=== PATIENT | male | born 1985 | race Caucasian/White ===

== ENCOUNTER 2016-06-03 13:56 | Emergency (ER) | payer BC ==
[~2016-06-03] VITALS: Ht 175.3 cm; Wt 81.9 kg
[~2016-06-03 13:56] MED LIST: AZIT250T6 PO; CETI10CA19 PO; NICO1PAT49 TOP
[2016-06-03 13:58] VITALS: Ht 175.3 cm; Wt 81.9 kg
--- OUTSIDE RECORDS SUMMARY | 2016-06-03 14:00 | XMS REPORT | Continuity of Care Document ---
Author Author [facility] Organization [facility] Address Unknown Phone Unavailable Allergies Active Description Code Type Severity Reaction Onset Reported/Identified Relationship to Patient Clinical Status Yes No Known Medication Allergies NKMA N/A N/A 12/31/2014 Medications Problems Date Dx Coded Attending Type Code Diagnosis Diagnosed By 01/10/2015 Carlos Manuel Beebe Final M25.511 Pain in right shoulder 01/10/2015 Carlos Manuel Beebe Reason R51 Headache 01/10/2015 Carlos Manuel Beebe Final S06.0X9A Concussion with loss of consciousness of unspecified duration, initial enco 01/10/2015 Carlos Manuel Beebe Final W17.89XA Other fall from one level to another, initial encounter Procedures Results Encounters ACCT No. Visit Date/Time Discharge Status Pt. Type Provider Facility Loc./Unit Complaint [id number] 12/31/2014 15:32:00 2014 18:59:00 DIS Emergency Carlos Manuel Beebe [facility] ED LEFT EYE VISION PROBLEMS
--- OUTSIDE RECORDS SUMMARY | 2016-06-03 14:00 | XMS REPORT | Continuity of Care Document ---
Author Author [facility] Organization [facility] Address Unknown Phone Unavailable Care Team Providers Care Layout Operator Name Role Phone ANAM BAEZA MD Primary Care Physician [phone] Insurance Providers Guarantor Americo Velazquez Address [address] [place] [address] Email DENIED/NO PORTAL Payer [facility] Policy Number [id number] Subscriber's Name Americo Velazquez Relationship 18 Self Group Number [id number] Chief Complaint and Reason for Visit Chief Complaint Cough,Fever,Flu,URI Reason for Visit Upper respiratory infection Problems Active Problems Medical Problem Onset Date Status Concussion Unknown Acute Injury resulting from fall from height Unknown Acute Low back pain Unknown Acute Past Problems Medical Problem Onset Date Upper respiratory infection Unknown Medications Current Home Medications Medication Dose Units Route Directions Days Qty Instructions Start Date Azithromycin 250 Mg Tablet 250 Mg Oral Daily 5 Days [address] Anatoly Jacques Implementation Coordinator [facility] [address] [phone] 03/02/16 Cetirizine Hcl (Zyrtec) 10 Mg Capsule 1 Cap Oral Daily 12/31/14 Nicotine (Nicoderm Cq) 1 Each Patch.td24 1 Patch Topically Daily 14 Patch 03/02/16 Social History Social History Problem Response Recorded Date/Time Onset Date Status Hx Substance Use No 12/30/2014 11:49pm Not Applicable Not Applicable Hx Alcohol Use No 12/30/2014 11:49pm Not Applicable Not Applicable Tobacco Usage smoke 12/31/2014 12:05am Not Applicable Not Applicable Hospital Discharge Instructions No hospital discharge instructions. Plan of Care Discharge Date 03/02/16 11:58am Disposition 01 DISCHARGED HOME, SELF-CARE Condition at Discharge Stable Instructions/Education Provided DI for Viral Upper Respiratory Infection -- Adult Prescriptions See Medication Section Referrals ANAM BAEZA MD Address: [address] [place] [address] [address] ROSE [place] [id number] Functional Status No functional status results. Allergies, Adverse Reactions, Alerts Allergen Type Severity Reaction Status Last Updated STEROID Allergy Unknown Active 12/31/14 Immunizations Query Response on File Recorded Date/Time DTaP Vaccine History YES 03/02/16 11:38am Influenza Vaccine Hx NO 03/02/16 11:38am Tetanus Diptheria Vaccine History YES 03/02/16 11:38am Tdap Vaccine Hx UNKNOWN DATE, I'VE HAD A LOT OF THOSE" 12/31/14 12:27am Vital Signs Acute Vital Signs Vital Response Date/Time Temperature (Fahrenheit) 98.4 deg F (96.8 - 99.1) 03/02/2016 11:29am Temperature (Calculated Celsius) 36.57002 degrees C (36.0 - 37.3) 03/02/2016 11:29am Pulse Rate (adult) 105 bpm (60 - 100) 03/02/2016 11:29am Respiratory Rate 20 breaths/min (10 - 20) 03/02/2016 11:29am O2 Sat by Pulse Oximetry 96 % (90 - 100) 03/02/2016 11:29am Blood Pressure 139/91 mm Hg 03/02/2016 11:29am Height (Inches) 70.80 inches 03/02/2016 11:29am Weight (Kilograms) 85.100 kg 03/02/2016 11:29am Body Mass Index (BMI) 26.0 03/02/2016 11:29am Results No known relevant diagnostic tests, laboratory data and/or discharge summary. Procedures No known history of procedures. Encounters Encounter Location Arrival/Admit Date Discharge/Depart Date Attending Provider Departed Emergency Room [facility] 03/02/16 11:15am 03/02/16 11: 58am TORIE PRITCHARD APRN Recent Diagnosis
[2016-06-03] MEDS ORDERED: NO ROUTINE MEDS (14:08)
--- NOTE | 2016-06-03 14:32 | NUR ---
REPORT RECEIVED FROM NAGA RILEY. CARE ASSUMED.
--- OUTSIDE RECORDS SUMMARY | 2016-06-03 14:41 | XMS REPORT | Continuity of Care Document ---
Author Author [facility] Organization [facility] Address Unknown Phone Unavailable Allergies Active Description [...] Status Pt. Type Provider Facility Loc./Unit Complaint [id number] 12/31/2014 15:32:00 2014 18:59:00 DIS Emergency Carlos Manuel Beebe [facility] ED LEFT EYE VISION PROBLEMS
--- NOTE | 2016-06-03 14:59 | NUR ---
STATUS PT STATES "I FEEL WAY BETTER, I THINK IT CAME OUT OF MY EYE." PT STATES HE "RUBBED IT" ON HIS T-SHIRT, AND NOW HE OR IS ARE UNABLE TO SEE SPECK.
--- NOTE | 2016-06-03 15:05 | NUR ---
DR DR KIM AT BEDSIDE.
[2016-06-03] MEDS ORDERED: FLUORESCEIN SODIUM 1 MG/STRIP LEFT EYE ONE (15:15)
[2016-06-03] MEDS ORDERED: ERYTHROMYCIN 0.5% EYE OINT 3.5gm LEFT EYE ONE (15:15)
--- NOTE | 2016-06-03 15:18 | ERPDOC ---
Departure Disposition Decision Date: Jun 03, 2016 Disposition Decision Time: 15:15 Disposition: 01 DISCHARGED HOME, SELF-CARE Impression Impression Impression: Primary Impression: Corneal abrasion Qualified Codes: S05.02XA - Injury of conjunctiva and corneal abrasion without foreign body, left eye, initial encounter Severity: Mild Condition: Improved Seen By: Physician only Referrals: JESS CHAMBERS MD 1 Day ANAM BAEZA MD (PCP/Family) 2 Days Patient Instructions: Corneal Abrasion (ED) Problems/Meds/Labs Reviewed?: Yes Medications reviewed and manag: Yes Follow up care ordered?: Yes Mental Status: Alert, Oriented Scripts Erythromycin Base (Erythromycin) 1 Gm Oint...g. 1 APPLIC OP QID for 10 Days, #1 TUBE 0 Refills Prov: AMERICO KIM DO 06/03/16 HPI - EENT General General Chief Complaint: Eye Problems Stated Complaint: FB L EYE Time Seen by Provider: 14:34 Source: patient Exam Limitations: no limitations HPI - EENT General Initial Comments 30-year-old male presents to emergency department with a chief complaint of a potential metal foreign body in his left eye. 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 Patient states that he felt like there was a small foreign body in his eye. Noted onset of symptoms one day ago. Symptoms have been persistent in nature since onset. Patient denies any other complaints or associated symptoms. Patient denies any true pain or discomfort. Patient notes a mild irritated foreign body sensation in the left eye. No radiation. He does not note anything that makes his symptoms any better or any worse. he does not wear contacts. He is unsure of the date of his last tetanus vaccine. Occurred At: home Onset/Timing: Gradual Allergies: Coded Allergies: No Known Allergies (Unverified , 06/03/16) Past History Past Medical History Pt denies signifigant PMH Surgical History Denies Surgeries Family History Family PMH: FOUND: alcohol abuse, asthma, cancer, depression, diabetes, drug abuse Social History Smoking Status: Never smoker Second Hand Exposure: No Substance Use Type: does not use Alcohol Intake: none Review of Systems Constitutional Constitutional: DENIES: chills, fever Eyes General: foreign body sensation, DENIES: erythema, exudate Lids/Accessories: DENIES: erythema, swelling Vision: DENIES: acuity, blurring ENMT Ears: DENIES: drainage, erythema Hearing: DENIES: hearing loss Balance: DENIES: ataxia, falling to one side Sinuses: DENIES: congestion, pain Nose: DENIES: nosebleeds, pain Mouth/Throat: DENIES: painful swallowing, sore throat Teeth: DENIES: pain Jaw: DENIES: pain Cardiovascular Cardiac: DENIES: chest pain, dyspnea on exertion Rhythm/Rate: DENIES: irregular beat, palpitations Vascular: DENIES: pedal edema, unilateral swelling Pulmonary Respiratory: DENIES: cough, dyspnea, pleuritic chest pain, sputum GI Upper Abdomen: DENIES: nausea, pain, vomiting Lower Abdomen: DENIES: diarrhea, pain General: DENIES: dysuria, pain Musculoskeletal General: DENIES: joint pain, tenderness Integumentary Skin: DENIES: itching, rash Neurological General: DENIES: headache, numbness, weakness Psychiatric Psychiatric: DENIES: emotional instability, suicidal ideation/attempt Endocrine Endocrine: DENIES: polydipsia, polyphagia Hematologic/Lymphatic Hematologic/Lymphatic: DENIES: frequent nosebleeds, lymphadenopathy Allergic/Immunological Allergic/Immunoligical: DENIES: allergic reactions, hives Physical Exam General General Nourishment: well nourished, well developed, appears stated age, no acute distress, adult General Body Habitus: well groomed Vitals and Pain First Documented Vital Signs Date Time Temp Pulse Resp B/P Pulse Ox O2 Delivery O2 Flow Rate FiO2 06/03/16 13:58 97.8 87 16 122/82 100 Room Air Weight: Kilograms: 81.900 Height (feet): 5 Height (inches): 9.00 Triage Pain Scale: RN VS reviewed by Provider: Yes Normal Exams: Head: Normocephalic w/o trauma Eyes: Pupils are PERRLA w/ EOMI, No scleral icterus, irritation, or foreign bodies noted ENMT: No facial trauma, nasal exudates, pharyngeal erythema, or exudates are noted Dental: No fractured, loose, or missing teeth noted Neck: Full range of motion, without adenopathy, JVD, bruits or thyromegaly Chest/Resp: Clear all campa, with good airflow, and symmetry bilaterally CV: Regular rate and rhythm, without murmur or gallop, Pulses 2+ all extremities, capillary refill, <2 seconds all ext., no pedal edema noted Abdomen: Bowel sounds positive, soft, non-tender, non-distended, no hepatosplenomegaly, masses or bruits noted Lymphatic: No lymphadenopathy, or lymphedema noted Musculoskeletal: No tenderness, or deformity noted, good range of motion, all extremities Integumentary: No rashes, hives, or bruising noted, hair and nails, without abnormality Neurologic: Patient is alert, and oriented, cranial nerves, motor/sensory/ cerebellar, exams w/o gross deficits, to observation Psychiatric: Patient exhibits, appropriate attention, emotion and affect Eyes (brief) Comments L eye - pupil is are equal and reactive to light. Lids are everted and examined all campa of extraocular motion no foreign body noted. Positive small uptake of fluorescein dye at 3 PM. Unremarkable slit lamp examination. Unremarkable lids and lashes. Intraocular pressure averages 10. No proptosis. Mild conjunctival injection. No preseptal or septal cellulitis. Extraocular movements are intact. Normal globe. Right eye unremarkable examination Differential Diagnoses Considering: Corneal Foreign Body, Other (foreign body/corneal abrasions/ corneal ulcer/ conjunctivitis) Progress Results/Orders Orders Procedure Category Date Status Time Fluorescein Sodium PHA 06/03/16 Complete (Ful-Edith) 15:15 Erythromycin Eye PHA 06/03/16 Complete Oint. (Ilotycin) 15:15 Tetanus,Diphth,A PHA 06/03/16 Complete Pertus (Tdap) (Adacel) 15:45 Medications Current ED Medications Fluorescein Sodium (Ful-Edith) 1 mg O ONCE LEFT EYE Last administered on 15:08; Start 06/03/16 at 15:15; Stop 06/03/16 at 15:16; Status DC Erythromycin (Ilotycin) 1 applic O ONCE LEFT EYE Last administered on 15:33; Start 06/03/16 at 15:15; Stop 06/03/16 at 15:16; Status DC Diphtheria/ Tetanus/Acell Pertussis (Adacel) 0.5 ml O ONCE IM Last administered on 06/03/16 15:44; Start 06/03/16 at 15:45; Stop 06/03/16 at 15:46 ; Status DC Progress Progress Prior to examination patient was irrigating his eye and the foreign body sensation resolved. Patient noted that he washed a small fragment from his eye. Patient denies any current symptoms. Patient's tetanus status is updated. Patient's examination was unremarkable in the emergency Department. Patient is provided with erythromycin ophthalmic. Prescription for Theramycin ophthalmic. Patient is to follow-up with Dr. Chambers of ophthalmology 1-2 days. Patient is to return to the emergency department if his condition worsens or changes in any manner. Patient is in agreement with the current plan of management. Patient is discharged home in improved condition. He is to follow up as instructed. AMERICO KIM DO Jun 03, 2016 15:18
[2016-06-03] MEDS ORDERED: ERYT1OIN7 OP (15:20)
[2016-06-03 15:32] VITALS: BP 112/72; PULSE 81; RESP 16; TEMP 98; O2SAT 97
[2016-06-03] MEDS ORDERED: TETANUS,DIPHTH,a PERTUS (Tdap) 0.5 ML VIAL IM ONE (15:45)
--- NOTE | 2016-06-03 15:45 | NUR ---
DEPART PT AMBULATORY TO LOBBY WITH , INSTRUCTIONS, RX AND PREPACK ACCOMPANY.
== END 2016-06-03 15:45 | disposition home or self-care (01) ==
LOC: ED 13:56
DX: S05.02XA Injury of conjunctiva and corneal abrasion without foreign body, left eye, initial encounter (principal); X58.XXXA Exposure to other specified factors, initial encounter; Y93.89 Activity, other specified; Y92.9 Unspecified place or not applicable; Y99.0 Civilian activity done for income or pay
CPT/HCPCS: 90471; 90715